=== PATIENT | female | born 2000 | race African-American/Black ===

== ENCOUNTER 2020-06-11 11:44 | Emergency (ER) | payer OTHER ==
[2020-06-11 11:56] VITALS: BP 120/75; PULSE 94; TEMP 98.3; BMI 19.9
--- NOTE | 2020-06-11 12:16 | PDOC ---
History of Present Illness - General Chief Complaint: Pain Stated Complaint: VOMITING/DIARRHEA Time Seen by Provider: 06/11/20 12:14 Past History - Medical History Allergies/Adverse Reactions: Allergies Allergy/AdvReac Type Severity Reaction Status Date / Time No Known Allergies Allergy Verified 06/11/20 11:56 Home Medications: Ambulatory Orders NK [No Known Home Medication] 06/11/20 - Reproductive History Is Patient Now?: No - Psycho-Social/Smoking History Smoking History: Never smoked Have you smoked in the past 12 months: No - Substance Abuse Hx (Audit-C & DAST Scrn) How often the patient has a drink containing alcohol: Never Score: In Men: 4 or > Positive; In Women: 3 or > Positive: 0 Screen Result (Pos requires Nsg. Audit-10AR): Negative In the last yr the pt used illegal drug/Rx for NonMed reason: Yes Score: Yes response is considered Positive: 1 Screen Result (Positive result requires Nsg. DAST-10): Positive *Physical Exam - Vital Signs Last Vital Signs Temp Pulse Resp BP Pulse Ox 98.3 F 94 H 20 120/75 100 06/11/20 11:51 06/11/20 11:51 06/11/20 11:51 06/11/20 11:51 06/11/20 11:51 Medical Decision Making - Medical Decision Making 06/11/20 12:15 20 yo F, nausea x 4 days w/ lower abd pain
[2020-06-11] MEDS ORDERED: ACETAMINOPHEN 500 MG TABLET (FP) PO ONE (12:17)
[2020-06-11] MEDS ORDERED: ONDANSETRON 4 MG TABLET PO ONE (12:25)
[2020-06-11] MEDS ORDERED: ACETAMINOPHEN 325 MG TABLET (FP) ONE (12:27)
[2020-06-11] MEDS ORDERED: MAG HYDROX/AL HYDROX/SIMETH 30 ML UNIT-DOSE CUP ONE (12:28)
[2020-06-11] MEDS ORDERED: ONDANSETRON *ODT* 4 MG TABLET ONE (12:28)
--- NOTE | 2020-06-11 12:30 | PDOC ---
History of Present Illness - General Chief Complaint: Pain Stated Complaint: VOMITING/DIARRHEA Time Seen by Provider: 06/11/20 12:14 History Source: Patient - History of Present Illness Timing/Duration: reports: constant, getting worse Abdominal Pain Onset Location: reports: epigastric Past History - Medical History Allergies/Adverse Reactions: Allergies Allergy/AdvReac Type Severity Reaction Status Date / Time No Known Allergies Allergy Verified 06/11/20 11:56 Home Medications: Ambulatory Orders Famotidine [Pepcid] 20 mg PO BID #28 tablet 06/11/20 Mag Hydrox/Al Hydrox/Simeth [Mylanta Suspension -] 30 ml PO Q6H #1 bottle 06/11/20 Ondansetron HCl [Zofran] 4 mg PO Q8H #12 tablet 06/11/20 - Reproductive History Is Patient Now?: No - Psycho-Social/Smoking History Smoking History: Never smoked Have you smoked in the past 12 months: No - Substance Abuse Hx (Audit-C & DAST Scrn) How often the patient has a drink containing alcohol: Never Score: In Men: 4 or > Positive; In Women: 3 or > Positive: 0 Screen Result (Pos requires Nsg. Audit-10AR): Negative In the last yr the pt used illegal drug/Rx for NonMed reason: Yes Score: Yes response is considered Positive: 1 Screen Result (Positive result requires Nsg. DAST-10): Positive Review of Systems - Review of Systems Constitutional: No: Chills, Fever, Malaise, Weakness ABD/GI: Yes: Nausea, Poor Appetite, Vomiting. No: Constipated, Diarrhea, Difficulty Swallowing : No: Dysuria, Flank Pain, Hematuria Musculoskeletal: No: Back Pain *Physical Exam - Vital Signs Last Vital Signs Temp Pulse Resp BP Pulse Ox 98.3 F 94 H 20 120/75 100 06/11/20 11:51 06/11/20 11:51 06/11/20 11:51 06/11/20 11:51 06/11/20 11:51 - Physical Exam General Appearance: Yes: Appropriately Dressed, Thin. No: Apparent Distress HEENT: positive: Normal Voice Neck: positive: Supple Respiratory/Chest: negative: Respiratory Distress Gastrointestinal/Abdominal: positive: Normal Bowel Sounds, Tender (minimal ttp to epigastrium only), Soft. negative: Distended, Guarding, Rebound Musculoskeletal: negative: CVA Tenderness Integumentary: positive: Dry, Warm Neurologic: positive: Fully Oriented, Alert, Normal Mood/Affect ED Treatment Course - LABORATORY CBC & Chemistry Diagram: 06/11/20 12:40 06/11/20 12:40 Medical Decision Making - Medical Decision Making 06/11/20 12:23 20 yo F, p/w nausea and epigastric pain. Pt endorses h/o chronic poor appetite w/ nausea and upper abd pain and tx for "gastritis" in the past but has since dc meds. States nausea worsened this week and vomited several times only for 1 day. Epigastric pain mild, not relieved w/ peptobismol. No change in BM, dysuria. f/c. Denies excessive ETOH or NSAID use see exam M/l gastritis/GERD 2/2 chronic poor appetite Thin appearing female w/ BMI of 19, stable, NAD w/ minimal ttp to epigastrium -symptomatic control -meds -anticipate dc w/ GI f/u 06/11/20 14:10 Labs unremarkable. UA w/ trace leuks and >190 ap. Pt with no dysuria, will hold of on abx and send ucx. Pt reports feeling better w/ meds. No ttp on rpt abd exam. Stable for dc w/ symptomatic control and GI referral Discharge - Discharge Information Problems reviewed: Yes Clinical Impression/Diagnosis: Poor appetite, Nausea, Epigastric abdominal pain Condition: Improved Disposition: HOME - Additional Discharge Information Prescriptions: Mag Hydrox/Al Hydrox/Simeth [Mylanta Suspension -] 30 ml PO Q6H #1 bottle Famotidine [Pepcid] 20 mg PO BID #28 tablet Ondansetron HCl [Zofran] 4 mg PO Q8H #12 tablet - Follow up/Referral Referrals: Wade Young MD [Staff Physician] - - Patient Discharge Instructions Patient Printed Discharge Instructions: DI for Gastritis Additional Instructions: Take medication as directed and follow up with Dr Young of GI for further evaluation of your GI symptoms and chronic poor appetite - Post Discharge Activity
[2020-06-11] MEDS: MAG HYDROX/AL HYDROX/SIMETH -MYLANTA- ORAL SUSPENSION PO SCH ×2 (12:52→14:06)
[2020-06-11 13:11] LABS: BASO % 1.2 % (0-2.0); EOS % 13.1 % (0-4.5); HEMATOCRIT 42.6 % (32.4-45.2); LYMPH % 43.9 % (8-40); MCH 29.8 pg (25.7-33.7); MEAN CELL VOLUME 90.5 fl (80-96); MONO % 8.5 % (3.8-10.2); NEUT % 33.3 % (42.8-82.8); PLATELET COUNT 297 K/MM3 (134-434); RDW 13.7 % (11.6-15.6); WHITE BLOOD COUNT 3.8 K/mm3 (4.0-10.0)
[2020-06-11 13:38] LABS: ALBUMIN 4.1 g/dl (3.4-5.0); BILIRUBIN,TOTAL 0.5 mg/dL (0.2-1); BLOOD UREA NITROGEN 7.1 mg/dL (7-18); CALCIUM 9.9 mg/dL (8.5-10.1); POTASSIUM 4.2 mmol/L (3.5-5.1); TOT PROT 7.6 g/dl (6.4-8.2)
[2020-06-11 13:48] LABS: HCG,QUALITATIVE URINE Negative
[2020-06-11 13:49] LABS: EPI CELLS 18 /uL (0-25.1); HYALINE CASTS 5 /uL (0-3.1); URINE APPEARANCE CLEAR; URINE BACTERIA 199 /uL (0-1359); URINE BILIRUBIN NEGATIVE (NEGATIVE); URINE COLOR YELLOW; URINE GLUCOSE (UA) NEGATIVE (NEGATIVE); URINE KETONE TRACE (NEGATIVE); URINE LEUK ESTERASE TRACE (NEGATIVE); URINE NITRITE NEGATIVE (NEGATIVE); URINE PROTEIN NEGATIVE (NEGATIVE); URINE RBC 5 /uL (0-23.9); URINE WBC 53 /uL (0-25.8)
== END 2020-06-11 14:15 | disposition home or self-care (01) ==
LOC: JER 11:44
DX: R11.0 Nausea (principal); R10.13 Epigastric pain; R63.8 Other symptoms and signs concerning food and fluid intake
CPT/HCPCS: 36415; 80053; 81003; 83690; 84703; 85025; 87077; 87086; 99284-25

== ENCOUNTER 2020-10-26 18:17 | Emergency (ER) | payer OTHER ==
[2020-10-26 18:26] VITALS: TEMP 98.2; BMI 20.2
[2020-10-26] MEDS ORDERED: SODIUM CHLORIDE 1,000 ML IV STA (19:39)
[2020-10-26] MEDS ORDERED: ONDANSETRON 4 MG/2 ML VIAL IVPUSH ONE (19:39)
[2020-10-26] MEDS ORDERED: morphine CARPU-JECT 4 MG/1 ML DISP.SYRIN IVPUSH ONE (19:39)
[2020-10-26 20:30] LABS: PH,URINE 7.5 (5.0-8.0); URINE APPEARANCE CLOUDY; URINE BILIRUBIN NEGATIVE (NEGATIVE); URINE COLOR YELLOW; URINE GLUCOSE (UA) NEGATIVE (NEGATIVE); URINE KETONE NEGATIVE (NEGATIVE); URINE LEUK ESTERASE NEGATIVE (NEGATIVE); URINE NITRITE NEGATIVE (NEGATIVE); URINE PROTEIN NEGATIVE (NEGATIVE)
[2020-10-26] MEDS ORDERED: ONDANSETRON 4 MG/2 ML VIAL ONE (20:40)
[2020-10-26] MEDS ORDERED: morphine SULFATE 4 MG/ML VIAL ONE (20:40)
[2020-10-26 20:50] LABS: BASO % 0.5 % (0-2.0); EOS % 10.7 % (0-4.5); HEMATOCRIT 38.7 % (32.4-45.2); HEMOGLOBIN 12.7 GM/dL (10.7-15.3); LYMPH % 47.7 % (8-40); MCH 29.3 pg (25.7-33.7); MCHC 32.8 g/dl (32.0-36.0); MEAN CELL VOLUME 89.2 fl (80-96); MEAN PLT VOLUME 8.5 fl (7.5-11.1); MONO % 9.8 % (3.8-10.2); NEUT % 31.3 % (42.8-82.8); PLATELET COUNT 247 K/MM3 (134-434); RBC 4.35 M/mm3 (3.60-5.2); RDW 13.4 % (11.6-15.6); WHITE BLOOD COUNT 5.5 K/mm3 (4.0-10.0)
[2020-10-26 21:08] LABS: POTASSIUM 4.2 mmol/L (3.5-5.1)
[2020-10-26 21:11] LABS: ALBUMIN 3.8 g/dl (3.4-5.0); BLOOD UREA NITROGEN 8.2 mg/dL (7-18); CALCIUM 9.2 mg/dL (8.5-10.1)
[2020-10-26 21:14] LABS: CREATININE 0.8 mg/dL (0.55-1.3)
[2020-10-26 21:16] LABS: BILIRUBIN,TOTAL 0.4 mg/dL (0.2-1)
[2020-10-27 01:18] VITALS: BP 102/57; PULSE 61
== END 2020-10-27 01:21 | disposition home or self-care (01) ==
LOC: JER 18:17
PROC: 3E033GC Introduction of Other Therapeutic Substance into Peripheral Vein, Percutaneous Approach (ICD-10-PCS; principal; 2020-10-26)
PROC: 3E0337Z Introduction of Electrolytic and Water Balance Substance into Peripheral Vein, Percutaneous Approach (ICD-10-PCS; principal; 2020-10-26)
DX: R10.31 Right lower quadrant pain (principal)
CPT/HCPCS: 36415; 74177-TC; 80053; 81003; 83690; 84703; 85025; 87086; 99285-25; Q9967

== ENCOUNTER 2021-06-03 17:28 | Emergency (ER) | payer OTHER ==
[2021-06-03 18:00] VITALS: BP 116/77; PULSE 98; TEMP 97.8; BMI 19.0
[2021-06-03] MEDS ORDERED: ACETAMINOPHEN 1000 MG/100 ML VIAL (NON FORMULARY) IVPB ONE (19:38)
[2021-06-03] MEDS ORDERED: LIDOCAINE 5% TOPICAL PATCH TP ONE (19:39)
[2021-06-03 19:55] LABS: BASO % 0.5 % (0-2.0); EOS % 8.3 % (0-4.5); HEMATOCRIT 40.3 % (32.4-45.2); HEMOGLOBIN 13.6 GM/dL (10.7-15.3); LYMPH % 31.2 % (8-40); MCH 29.7 pg (25.7-33.7); MCHC 33.7 g/dl (32.0-36.0); MEAN CELL VOLUME 87.9 fl (80-96); MEAN PLT VOLUME 7.5 fl (7.5-11.1); MONO % 10.7 % (3.8-10.2); NEUT % 49.3 % (42.8-82.8); PLATELET COUNT 304 10^3/uL (134-434); RBC 4.58 M/mm3 (3.60-5.2); RDW 14.2 % (11.6-15.6); WHITE BLOOD COUNT 7.7 K/mm3 (4.0-10.0)
[2021-06-03 20:05] LABS: INR 1.07 (0.83-1.09); PROTHROMBIN TIME (PATIENT) 13.1 SEC (9.7-13.0)
[2021-06-03 20:07] LABS: ACTIVATED PTT 31.4 SECONDS (25.2-36.5)
[2021-06-03] MEDS ORDERED: ACETAMINOPHEN INJECTION 100 ML IVPB ONE (20:07)
[2021-06-03] MEDS ORDERED: LIDOCAINE 5% TOPICAL PATCH ONE (20:07)
[2021-06-03 20:12] LABS: CALCIUM 9.5 mg/dL (8.5-10.1)
[2021-06-03 20:13] LABS: BLOOD UREA NITROGEN 8.7 mg/dL (7-18)
[2021-06-03 20:16] LABS: CREATININE 0.8 mg/dL (0.55-1.3)
[2021-06-03 20:17] LABS: BILIRUBIN,TOTAL 0.3 mg/dL (0.2-1); TOT PROT 7.6 g/dl (6.4-8.2)
[2021-06-03 22:03] LABS: PH,URINE 8.5 (5.0-8.0); URINE APPEARANCE TURBID; URINE BILIRUBIN NEGATIVE (NEGATIVE); URINE COLOR YELLOW; URINE GLUCOSE (UA) NEGATIVE (NEGATIVE); URINE KETONE NEGATIVE (NEGATIVE); URINE LEUK ESTERASE NEGATIVE (NEGATIVE); URINE NITRITE NEGATIVE (NEGATIVE); URINE PROTEIN NEGATIVE (NEGATIVE); URINE UROBILINOGEN 0.2 mg/dL (0.2-1.0)
[2021-06-03 22:04] LABS: HCG,QUALITATIVE URINE Positive
== END 2021-06-03 22:05 | disposition home or self-care (01) ==
LOC: JER 17:28
PROC: 3E0333Z Introduction of Anti-inflammatory into Peripheral Vein, Percutaneous Approach (ICD-10-PCS; principal; 2021-06-03)
DX: O26.891 Other specified pregnancy related conditions, first trimester (principal); R10.9 Unspecified abdominal pain; Z3A.01 Less than 8 weeks gestation of pregnancy
CPT/HCPCS: 36415; 76801-TC; 76815; 80053; 81003; 84702; 84703; 85025; 85610; 85730; 86850; 86900; 86901; 87086; 93005; 93010; 99285-25; J0131